=== PATIENT | male | born 1940 | race Caucasian/White ===

== ENCOUNTER 2019-11-24 07:41 | Observation (INO) | payer MEDICARE, OTHER ==
--- NOTE | 2019-11-15 23:09 | HP ---
CC: Dr. Deondre Macedo * HISTORY AND PHYSICAL: DATE OF PLANNED ADMISSION AND SURGERY: 11/24/19 HISTORY OF PRESENT ILLNESS: Mr. Hung is a 78-year-old white male who is admitted with a long history of a bladder outlet obstruction, prostate enlargement for transurethral resection of the prostate. I have been following Mr. Hung since 2006 because of prostate enlargement, bladder outlet obstruction and PSA elevation. In August 2007, he underwent a transrectal ultrasound and multiple prostate biopsies because of a PSA of 5.2. At that time, the prostate volume measured 86 cc and the biopsies were negative. He was then started on finasteride. His voiding symptoms improved and his PSA went down and remained stable around of 2 . Over the last several years, he started having increasing obstructive voiding symptoms with slow stream, hesitancy, intermittency, and feeling of incomplete bladder emptying. He had an elevated postvoid residual of about 130 cc. He was started on tamsulosin; but he noticed no improvement in his voiding. The patient then had a cystoscopy which showed a large obstructing prostate with a prominent median lobe causing most of the bladder outlet obstruction. The bladder showed heavy trabeculations and he also had a 3-cm diverticulum arising from the right posterior bladder wall. There were no calculi and no bladder lesions seen. The patient then had urodynamic studies which showed a high voiding detrusor pressure, slow flow, and a moderate increase of the postvoid residual. With the above history and findings, the cystoscopy and urodynamics findings, and the failure of medical treatment, the patient decided to proceed with a TURP. PAST MEDICAL HISTORY AND SYSTEM REVIEW: He is in very good health for his age. He is fairly active, chops wood, and works around the house. He denies any chest pain or shortness of breath. His only prescription medication is finasteride 5 mg daily. He denies any cardiac or pulmonary diseases or symptoms. No hospitalizations and no surgeries. The patient does not drink, does not use recreational drugs. His mental history is negative. ALLERGIES: He denies any allergies to medications. FAMILY HISTORY: Relevant for his father who at the age of 61; however, he was a very heavy smoker and had history of heavy alcohol abuse. His mother of old age. PHYSICAL EXAMINATION GENERAL: Pleasant, healthy, and fit-looking white male who looks good for his age. VITAL SIGNS: Blood pressure 140/80, pulse of 80, oxygen saturation 96%, temperature 97.5. LUNGS: Clear. HEART: Regular and rhythmic, no murmurs. ABDOMEN: Soft, no masses, no tenderness. No CVA tenderness. : External genitalia: he is circumcised. No penile lesions. Normal testes. No inguinal hernias. RECTAL: Showed an enlarged, but nonsuspicious prostate. IMPRESSION: Prostate enlargement and obstruction with failure of medical treatment. Most of the obstruction is secondary to a large obstructing median lobe. PLAN/RECOMMENDATIONS: I had a long-discussion with the patient regarding the options of management. He will do well with a TURP considering the cystoscopy findings and the urodynamic studies. I discussed the other options, namely Urolift and Rezum, although their success would be limited by the large median lobe. I discussed the potential complications of the TURP including the risk of bleeding, infection, urethral strictures, and a small incidence of urinary incontinence. All his questions were answered. [id number] #: [id number] [facility]
[~2019-11-24 07:41] MED LIST: Buffered Lidocaine 1% SYRIN* 1 ML/SYRINGE INTRADERM ONE; Lactated Ringers 1000 ML Bag* 1,000 ML IV SCH
[2019-11-24] MEDS ORDERED: Buffered Lidocaine 1% SYRIN* 1 ML/SYRINGE INTRADERM ONE (08:14)
[2019-11-24] MEDS ORDERED: cefTRIAXone(*) 2 GM ADDV.VIAL IVPB ONE (08:14)
[2019-11-24] MEDS ORDERED: Midazolam* 1 MG/ML 5 ML VIAL (5 MG) ONE (09:00)
[2019-11-24] MEDS ORDERED: fentaNYL* 50 MCG/ML 2 ML VIAL (100 MCG VIAL) ONE (09:16)
[2019-11-24] MEDS ORDERED: Ondansetron INJ* 2 MG/ML VIAL IV PRN (10:52)
[2019-11-24] MEDS ORDERED: Naloxone* 0.4 MG/ML 1 ML VIAL IV PRN (10:52)
[2019-11-24] MEDS ORDERED: oxyCODONE TAB* 5 MG TAB PO PRN (10:52)
[2019-11-24] MEDS ORDERED: fentaNYL* 50 MCG/ML 2 ML VIAL (100 MCG VIAL) IV PRN (10:52)
[2019-11-24] MEDS ORDERED: oxyCODONE/Acetamin 5/325 MG* TAB PO PRN (11:00)
[2019-11-24] MEDS ORDERED: Oxybutynin TAB* 5 MG PO PRN (11:00)
[2019-11-24] MEDS: NS 0.9% 1000 ML** 1,000 ML IV SCH ×2 (12:10→18:57)
[2019-11-25] MEDS: NS 0.9% 1000 ML** 1,000 ML IV SCH (01:48)
--- NOTE | 2019-11-25 02:30 | OP ---
CC: Dr. Dong * DATE OF OPERATION: 11/24/19 - ROOM #333 DATE OF : 44 SURGEON: Gil Ballard MD ANESTHESIOLOGIST: Dr. Sandip Mariee. ANESTHESIA: Spinal. PRE-OP DIAGNOSES: 1. Benign prostatic hyperplasia. 2. Bladder outlet obstruction due to above. 3. Bladder diverticulum. POST-OP DIAGNOSES: 1. Benign prostatic hyperplasia. 2. Bladder outlet obstruction due to above. 3. Bladder diverticulum. OPERATIVE PROCEDURE: 1. Cystoscopy. 2. Transurethral resection of the prostate. INDICATIONS FOR PROCEDURE: Mr. Hung is a 78-year-old white male with long history of prostate enlargement and bladder outlet obstruction. He has been maintained on tamsulosin and finasteride. He continued to be significantly symptomatic with nocturia, slow stream, frequency, and incomplete bladder emptying. Cystoscopy showed a large obstructing prostate with a prominent median lobe. There was a 3 cm diverticulum arising from the right posterolateral bladder wall. Urodynamic studies showed high voiding detrusor pressure and an elevated postvoid residual. With above history and findings and with the failure of medical treatment and persistent symptoms, the patient elected to proceed with TURP. PATHOLOGY: At cystoscopy, the penile and bulbar urethrae looked normal. The prostatic urethra was large, measuring about 4 cm in diameter. There were large vascular lateral lobes and a very large median lobe. Examination of the bladder showed moderate diffuse trabeculations. There were no suspicious bladder lesions seen. The ureteral orifices looked normal. A 3 to 4 cm diverticulum was noted arising from the right posterior lateral bladder wall. The prostate adenoma was large, moderately vascular. DESCRIPTION OF PROCEDURE: After successful spinal anesthesia, the patient was placed in the lithotomy position and was prepped and draped for a cystoscopy. Cystoscopy was performed. The bladder was inspected and the above findings were noted. The resectoscope was then introduced inside the bladder. Mannitol/sorbitol solution was used for irrigation and the inflow and outflow were adjusted to avoid overdistention of the bladder. The median lobe was resected first down to the posterior bladder neck muscles. The protruding portions of the lateral lobes inside the bladder neck were then resected circumferentially. Because of the very large size of the prostate, the resection had to be done in stages. The resectoscope was positioned in the mid prostatic urethra and the prostate adenoma was resected circumferentially. This was repeated until the resectoscope was at the level of the verumontanum. At that level, the right lobe was resected, starting at 5 o'clock and proceeding anteriorly. The left lobe was resected next. The residual apical tissue and anterior tissue were resected last. The limits of the resection were the bladder neck proximally, the verumontanum distally and the capsule circumferentially. There was oozing of venous blood from an open sinus at 12 o' clock proximal to the bladder neck and at 11 o'clock. All the significant bleeders were controlled with cautery. Irrigation of the bladder was then carried, evacuating all the prostate chips. At the completion of the resection, there was still adenomatous tissue including at the level of the apex, but it did not seem to be obstructing. There were no arterial bleeders noted. There was still venous oozing noted from the above described areas. The ureteral orifices were intact. The bladder wall was intact. There were no residual prostate chips. The resectoscope was then removed and a size 24-Cameroonian Lr catheter was placed insider the bladder and the balloon inflated with 30 cc of water. The catheter was then placed under gentle traction and irrigated and the irrigation came back clear. The Lr catheter was then taped to the right thigh of the patient on gentle traction. Irrigation yielded clear returns. The patient tolerated the procedure well and left the operating room in good condition. The blood loss was estimated at about 100 cc. The specimen was prostate chips. [id number]/[facility]PS #: [id number] [facility]
[2019-11-25] MEDS ORDERED: cefTRIAXone(*) 1 GM in NS 0.9% 50 ML* 50 ML IVPB ONE (07:00)
[2019-11-25 07:49] VITALS: BP 154/67
[2019-11-25] MEDS ORDERED: Magnesium Oxide TAB* 400 MG PO SCH (09:00)
[2019-11-25] MEDS ORDERED: [UNRECOGNIZED DRUG - OTHER] PO SCH (09:00)
[2019-11-25] MEDS ORDERED: Vitamin THERAPEUTIC TAB PO SCH (09:00)
[2019-11-25] MEDS ORDERED: Finasteride TAB* 5 MG PO SCH (09:00)
[2019-11-25] MEDS ORDERED: GLUCOSAMINE PO SCH (09:00)
--- NOTE | 2019-11-25 11:37 | DS ---
Amended report to correct date of admission and date of discharge. DISCHARGE SUMMARY: DATE OF ADMISSION: 11/24/19 DATE OF DISCHARGE: 11/25/19 FINAL DIAGNOSES: 1. Benign prostatic hyperplasia. 2. Bladder diverticulum. 3. Bladder outlet obstruction due to above. OPERATION PERFORMED: Cystoscopy and transurethral resection of the prostate. HISTORY: Mr. Hung is a 78-year-old white male who I have been following since 2006 because of prostate enlargement and bladder outlet obstruction and borderline PSA elevation. Prostate biopsies were negative. He had been maintained on tamsulosin and finasteride. His voiding symptoms have gotten worse recently with slower stream, hesitancy, nocturia and feeling of incomplete bladder emptying. Workup with cystoscopy showed a very large obstructing prostate with a prominent median and lateral lobes. The bladder showed diffuse trabeculations and there was a 3 to 4 cm bladder diverticulum. Urodynamic studies showed a high voiding detrusor pressure consistent with bladder outlet obstruction and good bladder function. Because of the above history and persistent and worsening voiding symptoms while on full medical treatment and after discussing the options of management, the patient elected to proceed with TURP. PAST MEDICAL HISTORY AND SYSTEM REVIEW: He is in excellent health. He is physically active and he denies any cardiac or pulmonary diseases or symptoms. His only prescription medication is the finasteride. Preoperative physical exam was within normal. Rectal examination showed a large but benign feeling prostate. COURSE IN HOSPITAL: The patient was admitted the morning of his surgery. He underwent an uncomplicated transurethral resection of the prostate under spinal anesthesia. The prostate was large, obstructing and moderately vascular but the at the completion of the procedure, the prostatic urethra was wide open. The patient was kept for observation overnight. He did have bladder spasms but otherwise did very well and by the morning, his urine was clear, his vital signs were normal and he has no complaints. The patient is being discharged home in good condition, on catheter drainage, on his first postoperative day. His urine is clear, his vital signs are normal and he has no complaints. Pathology showed benign resected prostate tissue. DISCHARGE MEDICATIONS: Include: 1. Finasteride. 2. Advil PM as needed for pain and bladder spasms. Instructions were given for catheter care. I will see patient in my office next week and the Lr catheter will be removed. [id number]/[facility] #: [id number] [facility] HOSPITALIgnacio
== END 2019-11-25 10:22 | disposition home or self-care (01) ==
LOC: OR 07:41 → SSU 12:06
PROVIDERS: ADMIT Urology; ATTEND Urology
PROC: 0TJB8ZZ Inspection of Bladder, Via Natural or Artificial Opening Endoscopic (ICD-10-PCS; 2019-11-24)
PROC: 0VT08ZZ Resection of Prostate, Via Natural or Artificial Opening Endoscopic (ICD-10-PCS; principal; 2019-11-24 10:00)
DX: N40.1 Benign prostatic hyperplasia with lower urinary tract symptoms (principal); N13.8 Other obstructive and reflux uropathy; N32.3 Diverticulum of bladder; Z79.899 Other long term (current) drug therapy
CPT/HCPCS: 88305; 96361; 96365; A9270-GY; G0378; J0696; J2250; J3010